=== PATIENT | female | born 1990 | race Caucasian/White ===

== ENCOUNTER 2022-04-30 18:48 | Emergency (ER) | payer OTHER ==
[2022-04-30 18:54] VITALS: BP 105/68; PULSE 81; RESP 18; TEMP 99.1; BMI 33.9
[2022-04-30] MEDS ORDERED: KETOROLAC TROMETHAMINE 30 MG/1 ML VIAL IM ONE (21:30)
== END 2022-04-30 21:36 | disposition home or self-care (01) ==
LOC: JER 18:48 → JERFT 18:48
DX: M79.674 Pain in right toe(s) (principal)
CPT/HCPCS: 73630-TC-RT-FY; 99284-25